=== PATIENT | male | born 1990 | race Caucasian/White ===

== ENCOUNTER 2020-10-12 16:09 | Emergency (ER) | payer OTHER, SELFPAY ==
[2020-10-12] MEDS ORDERED: MORPHINE 4 MG/ML SYR ONE (16:37)
[2020-10-12] MEDS ORDERED: ONDANSETRON 4 MG/2 ML VIAL ONE (16:37)
[2020-10-12 16:38] LABS: Absolute Lymphocytes (CBC) 1.2 K/uL (0.7-4.9); Basophils % 0.3 % (0-1.3); Hematocrit 48.4 % (39.6-49.0); Lymphocytes % 7.2 % (15.3-44.8); RBC Red Blood Cell Count 5.16 M/uL (4.33-5.43)
[2020-10-12 16:46] LABS: Potassium 4.3 mmol/L (3.5-5.1)
--- NOTE | 2020-10-12 17:06 | RAD REPORT ---
EXAM DESCRIPTION: CT - Head C Spine Cap Tomas Owens - 10/12/2020 4:35 pm CLINICAL HISTORY: Head and neck injury with chest and abdominal pain status post fall. Head and neck pain . TECHNIQUE: Computed axial tomography of the head and cervical spine was obtained Computed axial tomography of the chest, abdomen and pelvis was obtained. 100 cc Isovue-300 was given intravenously coronal and sagittal reconstruction was performed. All CT scans are performed using dose optimization technique as appropriate and may include automated exposure control or mA/KV adjustment according to patient size. COMPARISON: None FINDINGS: An intracranial bleed is not seen. The ventricles are normal in caliber. An extra-axial fl uid collection is not noted. Fluid within the sinuses/mastoids is not noted A cervical fracture is not seen. No dislocation is seen. A mediastinal hematoma is not noted. A pleural effusion is not present. A lung contusion is not seen. Fractures involve the left posterior, ninth, tenth and eleventh ribs. The fractures vary from nondisp laced to mildly displaced. No pneumothorax The liver, spleen, pancreas, adrenals, kidneys and bladder do not demonstrate an acute injury Minimally displaced fracture anterior left acetabulum. Mildly displaced fracture left inferior pubic ramus. Spondylolysis L5. Bony densities adjacent to the anterior superior aspects of L3 and L5 appear chronic. Small left ingu inal hernia. Trace amount of free fluid within the pelvis IMPRESSION: 1. No acute intracranial abnormality is seen 2. A cervical fracture is not visualized. If the patient continues have symptoms to suggest intracran ial/spinal cord pathology then MRI would be recommended. 3. Nondisplaced and mildly displaced fractures left posterior through eleventh ribs 4. Minimally displaced fracture anterior left acetabulum. 5. Mildly displaced fracture left inferior pubic ramus 6. Bony densities adjacent to the anterior superior aspects of L3 and L5 have more the appearance of being chronic than acute
--- NOTE | 2020-10-12 17:40 | ER ---
Nurse's Notes [facility] Name: Jonathan Barajas Age: 30 yrs Sex: Male : 1990 Arrival Date: 10/12/2020 Time: 16:11 Bed 2 Private MD: Diagnosis: Multiple fractures of ribs, left side;Nondisplaced fracture of anterior column [iliopubic] of left acetabulum;Multiple fractures of pelvis without disruption of pelvic ring Presentation: 10/12 16:14 Chief complaint: Patient states: FALL 12 FT BACKWARDS OFF [place] [employer]. Care bp prior to arrival: None. Mechanism of Injury: Fall from 2nd story approximately 12 feet. Trauma event details: Injury occurred in the [facility], Injury occurred: in a recreational area. Injury occurred: October 12, 2020 Injury occurred at: 14:00. 16:14 Acuity: ELIZABETH 3 bp 16:14 Method Of Arrival: Wheelchair bp 16:15 Coronavirus screen: At this time, the client does not indicate any symptoms associated bp with coronavirus-19. Ebola Screen: No symptoms or risks identified at this time. Initial Sepsis Screen: Does the patient meet any 2 criteria? No. Patient's initial sepsis screen is negative. Does the patient have a suspected source of infection? No. Patient's initial sepsis screen is negative. Risk Assessment: Do you want to hurt yourself or someone else? Patient reports no desire to harm self or others. Onset of symptoms was October 12, 2020 at 14:00. Triage Assessment: 16:15 General: SEE TRAUMA TAB. bp Trauma Activation: Consult Physician: ED Physician; Name: ; Notified At: ; Arrived At: Physician: General Surgeon; Name: ; Notified At: ; Arrived At: Physician: Radiology; Name: ; Notified At: ; Arrived At: Physician: Respiratory; Name: ; Notified At: ; Arrived At: Physician: Lab; Name: ; Notified At: ; Arrived At: Historical: - Allergies: 16:25 PENICILLINS; bp 16:25 Amoxicillin; bp - Home Meds: 16:25 None [Active]; bp - PMHx: 16:25 None; bp - Immunization history: Last tetanus immunization: - up to date. - Social history:: Smoking status: Patient reports the use of cigarette tobacco products, unknown amount Patient uses alcohol. - Family history:: not pertinent. - Hospitalizations: : No recent hospitalization is reported. Screenin:14 Abuse screen: Denies threats or abuse. Denies injuries from another. Tuberculosis bp screening: No symptoms or risk factors identified. Primary Survey: 16:14 NO uncontrolled hemorrhage observed. A: The patient is alert. Airway: patent. bp Breathing/Chest: Respiratory pattern: regular, Respiratory effort: spontaneous, unlabored. Circulation: Skin color: pink, Skin temperature: warm, dry. Disability Alert. Exposure/Environment: All clothing and personal items were removed. Forensic evidence collection is not deemed to be indicated at this time. Items placed in patient belonging bag. There is no evidence of uncontrolled external bleeding. Obvious injury(ies) are noted at this time: BRUISING AND PAIN TO LEFT LUMBAR REGION RADIATING DOWN LLE. Assessment: 16:14 General: Appears distressed, uncomfortable, Behavior is cooperative, appropriate for bp age, anxious. Pain: Complains of pain in back and left leg. Neuro: No deficits noted. EENT: No deficits noted. Cardiovascular: No deficits noted. Respiratory: No deficits noted. GI: No signs and/or symptoms were reported involving the gastrointestinal system. : No signs and/or symptoms were reported regarding the genitourinary system. Derm: No deficits noted. Musculoskeletal: Circulation, motion, and sensation intact. Range of motion: intact in all extremities, Reports pain in back and left leg. Injury Description: Bruise sustained to back. 17:30 Reassessment: No changes from previously documented assessment. Patient and/or family bp updated on plan of care and expected duration. Pain level reassessed. Patient is alert, oriented x 3, equal unlabored respirations, skin warm/dry/pink. TRANSFER INITIATED FOR [facility] Patient states symptoms have improved. 18:30 Reassessment: No changes from previously documented assessment. Patient and/or family bp updated on plan of care and expected duration. Pain level reassessed. Patient is alert, oriented x 3, equal unlabored respirations, skin warm/dry/pink. REPORT TO [facility] ER. TRANSPORT PENDING Patient states symptoms have improved. 19:26 Reassessment: Patient appears in no apparent distress at this time. Patient and/or mg2 family updated on plan of care and expected duration. Pain level reassessed. Patient is alert, oriented x 3, equal unlabored respirations, skin warm/dry/pink. waiting for EMS for transfer to [place]. 20:03 Reassessment: report given to [facility]. mg2 20:07 Reassessment: Patient and/or family updated on plan of care and expected duration. Pain mg2 level reassessed. Patient is alert, oriented x 3, equal unlabored respirations, skin warm/dry/pink. 20:07 Reassessment: pt leaving ER via stretcher with EMS. mg2 Vital Signs: 16:25 BP 114 / 65; Pulse 84; Resp 17; Temp 97.9; Pulse Ox 99% ; Weight 81.65 kg; Height 6 ft. bp (182.88 cm); 17:30 BP 112 / 66; Pulse 84; Resp 16; Pulse Ox 94% ; bp 18:30 BP 103 / 60; Pulse 77; Resp 17; Pulse Ox 96% ; bp 19:26 BP 117 / 61; Pulse 75; Resp 18; Pulse Ox 100% on R/A; mg2 16:25 Body Mass Index 24.41 (81.65 kg, 182.88 cm) bp Owen Coma Score: 16:14 Eye Response: spontaneous(4). Verbal Response: oriented(5). Motor Response: obeys bp commands(6). Total: 15. Trauma Score (Adult): 16:14 Eye Response: spontaneous(1); Verbal Response: oriented(1); Motor Response: obeys bp commands(2); Systolic BP: > 89 mm Hg(4); Respiratory Rate: 10 to 29 per min(4); Owen Score: 15; Trauma Score: 12 ED Course: 16:11 Patient arrived in ED. ag5 16:14 Satinder Partida, RN is Primary Nurse. bp 16:14 Patient has correct armband on for positive identification. Bed in low position. Call bp light in reach. Side rails up X2. 16:14 Patient maintains SpO2 saturation greater than 95% on room air. Thermoregulation: warm bp blanket given to patient. 16:15 Ben Rosales MD is Attending Physician. rn 16:15 Triage completed. bp 16:15 Arm band placed on. bp 16:26 Initial lab(s) drawn, by me, sent to lab. Inserted saline lock: 20 gauge in right jl7 forearm, using aseptic technique. Blood collected. 20:07 Report given to [facility]. mg2 Administered Medications: 16:25 Drug: morphine 4 mg Route: IVP; Site: right forearm; jl7 17:14 Follow up: Response: Pain is decreased bp 16:25 Drug: Zofran (Ondansetron) 4 mg Route: IVP; Site: right forearm; jl7 17:14 Follow up: Response: Nausea is decreased bp Intake: 16:14 PO: 0ml; Total: 0ml. bp Output: 16:14 Urine: 0ml; Total: 0ml. bp Outcome: 17:39 ER care complete, transfer ordered by . rn 20:08 Patient left the ED. mg2 Signatures: Ben Rosales MD MD rn Leal, Jahala, RN RN jl7 Satinder Partida RN RN bp Gardose, Michele RN RN mg2 Jodee Jones 5
--- NOTE | 2020-10-12 17:40 | EDPHYS ---
Physician Documentation [facility] Name: Jonathan Barajas Age: 30 yrs Sex: Male : 1990 Arrival Date: 10/12/2020 Time: 16:11 Bed 2 Private MD: ED Physician Ben Rosales HPI: 10/12 16:22 This 30 yrs old Male presents to ER via Wheelchair with complaints of Fall rn Injury. 16:22 Details of fall: The patient fell from a height, out of a building, approximately 12 rn feet. Onset: The symptoms/episode began/occurred just prior to arrival. Associated injuries: The patient sustained injury to the low back, left ribs, left groin. Severity of symptoms: At their worst the symptoms were moderate, in the emergency department the symptoms are unchanged. The patient has not experienced similar symptoms in the past. The patient has not recently seen a physician. Reports leaning on beach house balcony rail, flipped over, and landed on concrete. Reports pain to back/ribs/left groin. No LOC. Reports ambulatory, remembers all events, went up to sit on cough, then pain got worse so came in. Ambulatory.. Historical: - Allergies: 16:25 PENICILLINS; bp 16:25 Amoxicillin; bp - Home Meds: 16:25 None [Active]; bp - PMHx: 16:25 None; bp - Immunization history: Last tetanus immunization: - up to date. - Social history:: Smoking status: Patient reports the use of cigarette tobacco products, unknown amount Patient uses alcohol. - Family history:: not pertinent. - Hospitalizations: : No recent hospitalization is reported. ROS: 16:22 Constitutional: Negative for fever, chills, and weight loss, Eyes: Negative for injury, rn pain, redness, and discharge, Neck: Negative for injury, pain, and swelling, Cardiovascular: + left posterior rib pain Respiratory: Negative for shortness of breath, cough, wheezing, and pleuritic chest pain, Abdomen/GI: Negative for abdominal pain, nausea, vomiting, diarrhea, and constipation, Back: + left lower back pain : Negative for injury, bleeding, discharge, and swelling, MS/Extremity: + left hip/groin pain Skin: Negative for injury, rash, and discoloration, Neuro: Negative for headache, weakness, numbness, tingling, and seizure. Exam: 16:22 Constitutional: This is a well developed, well nourished patient who is awake, alert, rn appears uncomfortable standing to get to bed Head/Face: Normocephalic, atraumatic. Eyes: Pupils equal round and reactive to light, extra-ocular motions intact. Lids and lashes normal. Conjunctiva and sclera are non-icteric and not injected. Cornea within normal limits. Periorbital areas with no swelling, redness, or edema. ENT: No oral trauma. Neck: No midline tenderness Chest/axilla: No focal rib tenderness or crepitus Cardiovascular: Regular rate and rhythm . No pulse deficits. Respiratory: No increased work of breathing, no retractions or nasal flaring. Abdomen/GI: Soft, non-tender Back: No spinal tenderness. + left lower perispinal tenderness MS/ Extremity: Pulses equal, no cyanosis. Neurovascular intact. Mild painful ROM left hip, no rotational deformity. Neuro: Awake and alert, GCS 15, oriented to person, place, time, and situation. Cranial nerves II-XII grossly intact. Motor strength 5/5 in all extremities. Sensory grossly intact. Vital Signs: 16:25 BP 114 / 65; Pulse 84; Resp 17; Temp 97.9; Pulse Ox 99% ; Weight 81.65 kg; Height 6 ft. bp (182.88 cm); 17:30 BP 112 / 66; Pulse 84; Resp 16; Pulse Ox 94% ; bp 18:30 BP 103 / 60; Pulse 77; Resp 17; Pulse Ox 96% ; bp 19:26 BP 117 / 61; Pulse 75; Resp 18; Pulse Ox 100% on R/A; mg2 16:25 Body Mass Index 24.41 (81.65 kg, 182.88 cm) bp Herve Coma Score: 16:14 Eye Response: spontaneous(4). Verbal Response: oriented(5). Motor Response: obeys bp commands(6). Total: 15. Trauma Score (Adult): 16:14 Eye Response: spontaneous(1); Verbal Response: oriented(1); Motor Response: obeys bp commands(2); Systolic BP: > 89 mm Hg(4); Respiratory Rate: 10 to 29 per min(4); [place] Score: 15; Trauma Score: 12 MDM: 16:15 Patient medically screened. rn 17:37 Differential diagnosis: contusion, fracture, multiple trauma, sprain, strain. Data rn reviewed: vital signs, nurses notes, lab test result(s), radiologic studies, CT scan, plain films, and as a result, I will admit patient. Counseling: I had a detailed discussion with the patient and/or guardian regarding: the historical points, exam findings, and any diagnostic results supporting the discharge/admit diagnosis, lab results, radiology results, the need to transfer to another facility, for higher level of care, [facility] does not immediately have the required specialist. Response to treatment: the patient's symptoms have mildly improved after treatment, and as a result, I will admit patient. Admission orders: after a detailed discussion of the patient's condition and case, the admit orders are written by me. ED course: Pt with 3 rib fractures, pubic ramus fracture, and acetabular fracture, no intervention indicated for ribs or pubic ramus but dont have ortho that can take care of acetabular fracture and that is the most painful injury for patient. [facility] transfer to [facility] for polytrauma and ortho eval of acetabular fracture. . 10/12 16:17 Order name: Basic Metabolic Panel rn 10/12 16:17 Order name: CBC with Diff rn 10/12 16:17 Order name: CT Traumagram (Head C Spine CAP W Con) rn 10/12 16:17 Order name: XRAY Hip LEFT 2 view rn 10/12 16:43 Order name: CBC with Automated Diff; Complete Time: 17:40 EDMS 10/12 16:47 Order name: Basic Metabolic Panel; Complete Time: 17:40 EDMS 10/12 16:17 Order name: Labs collected and sent; Complete Time: 16:27 rn 10/12 17:09 Order name: CT; Complete Time: 17:40 EDMS 10/12 18:18 Order name: RAD EDMS Administered Medications: 16:25 Drug: morphine 4 mg Route: IVP; Site: right forearm; jl7 17:14 Follow up: Response: Pain is decreased bp 16:25 Drug: Zofran (Ondansetron) 4 mg Route: IVP; Site: right forearm; jl7 17:14 Follow up: Response: Nausea is decreased bp Disposition: 10/12/20 17:39 Transfer ordered to [facility]. Diagnosis are Multiple fractures of ribs, left side, Nondisplaced fracture of anterior column [iliopubic] of left acetabulum, Multiple fractures of pelvis without disruption of pelvic ring. - Reason for transfer: Higher level of care. - Accepting physician is Dr. Montenegro. - Condition is Stable. - Problem is new. - Symptoms have improved. Signatures: Dispatcher [employer] EDMS Ben Rosales MD MD rn Leal, Jahala RN RN jl7 Satinder Partida RN RN bp Urbano Yousif, JOAN RN mg2 Corrections: (The following items were deleted from the chart) 17:46 17:39 10/12/2020 17:39 Transfer ordered to [facility]. Diagnosis is rn Multiple fractures of ribs, left side; Nondisplaced fracture of anterior column [iliopubic] of left acetabulum; Multiple fractures of pelvis without disruption of pelvic ring. Reason for transfer: Higher level of care. Accepting physician is . Condition is Stable. Problem is new. Symptoms have improved. rn 20:08 17:46 10/12/2020 17:39 Transfer ordered to [facility]. Diagnosis is mg2 Multiple fractures of ribs, left side; Nondisplaced fracture of anterior column [iliopubic] of left acetabulum; Multiple fractures of pelvis without disruption of pelvic ring. Reason for transfer: Higher level of care. Accepting physician is Dr. Montenegro. Condition is Stable. Problem is new. Symptoms have improved. rn
--- NOTE | 2020-10-12 18:14 | RAD REPORT ---
EXAM DESCRIPTION: RAD - Hip Left 2 View - 10/12/2020 5:09 pm CLINICAL HISTORY: Left hip pain status post injury FINDINGS: Minimally displaced fracture left acetabulum. Mildly displaced fracture left inferior pubi c ramus. No dislocation
[2020-10-16 00:58] VITALS: TEMP 97.9
[2020-10-16 01:02] VITALS: BP 117/61; O2SAT 100
== END 2020-10-12 20:08 | disposition short-term general hospital (02) ==
LOC: ER 16:09
DX: S22.42XA Multiple fractures of ribs, left side, initial encounter for closed fracture (principal); S32.435A Nondisplaced fracture of anterior column [iliopubic] of left acetabulum, initial encounter for closed fracture; S32.9XXA Fracture of unspecified parts of lumbosacral spine and pelvis, initial encounter for closed fracture; W13.0XXA Fall from, out of or through balcony, initial encounter; Y93.89 Activity, other specified; Y92.832 Beach as the place of occurrence of the external cause; Z72.0 Tobacco use; Z88.0 Allergy status to penicillin; Z88.1 Allergy status to other antibiotic agents
CPT/HCPCS: 85025; 80048; 36415; 70450; 72125; 71260; 74177; 73502; 96375; 96374; 99284; Q9967; J2405